=== PATIENT | male | born 1995 | race African-American/Black ===

== ENCOUNTER 2018-08-18 06:42 | Emergency (ER) | payer MEDICAID ==
[~2018-08-18] VITALS: Ht 177.8 cm; Wt 93.4 kg
[2018-08-18 06:46] VITALS: Ht 177.8 cm; Wt 93.4 kg
[2018-08-18 07:44] LABS: CALCIUM 10.1 mg/dL (8.5-10.1); CARBON DIOXIDE 28.7 mmol/L (21-32); CHLORIDE SERUM 103 mmol/L (98-107); CREATININE SERUM 1.2 mg/dL (0.7-1.3); GFR1 > 60 mL/min; GLUCOSE SERUM 99 mg/dL (74-106); POTASSIUM SERUM 4.4 mmol/L (3.5-5.1); SODIUM SERUM 141 mmol/L (136-145)
[2018-08-18 07:49] LABS: ALBUMIN 4.1 g/dL (3.4-5.0); ALKALINE PHOSPHATASE 55 U/L (46-116); ALT/SGPT 29 U/L (16-63); AST/SGOT 14 U/L (15-37); BILIRUBIN TOTAL 0.47 mg/dL (0.20-1.00)
[2018-08-18 07:50] LABS: TOTAL PROTEIN, SERUM 8.5 g/dL (6.4-8.2)
[2018-08-18 07:57] LABS: BASOPHIL % 1.1 % (0-2); PLATELET COUNT 352 x10^3mcL (130-400); RED CELL DISTRIBUTION WIDTH 12.4 % (11.5-14.5)
[2018-08-18 10:48] VITALS: BP 128/91
== END 2018-08-18 10:48 | disposition home or self-care (01) ==
LOC: ED 06:42
PROVIDERS: Emergency Medicine
DX: R07.2 Precordial pain (principal)
CPT/HCPCS: 36415